=== PATIENT | female | born 1980 | race African-American/Black ===

== ENCOUNTER 2018-05-04 11:27 | Emergency (ER) | payer BC, OTHER, SELFPAY ==
[2018-05-04] MEDS ORDERED: Promethazine HCl 25 MG/ML VIAL ONE (12:37)
[2018-05-04] MEDS ORDERED: Morphine 5 MG/ML SYRINGE ONE (12:37)
== END 2018-05-04 13:03 | disposition home or self-care (01) ==
LOC: SCSER 11:27
DX: M54.41 Lumbago with sciatica, right side (principal); I10 Essential (primary) hypertension; F32.9 Major depressive disorder, single episode, unspecified; F41.9 Anxiety disorder, unspecified; Z79.899 Other long term (current) drug therapy
CPT/HCPCS: 96372; J2270; J2550